=== PATIENT | male | born 1980 | race Caucasian/White ===

== ENCOUNTER 2018-04-07 15:25 | Emergency (ER) | payer SELFPAY ==
[2018-04-07] MEDS ORDERED: Sulfamethoxazole/Trimethoprim 800-160 MG Tab ONE (15:35)
--- NOTE | 2018-04-07 19:16 | ER ---
Date of Service: 04/07/2018 HISTORY OF PRESENT ILLNESS: The patient is a 37-year-old male who presents to the ER. He thinks he was bit during the nighttime by an insect. He notes a small sore on the right base of the neck, which has gotten worse since Sunday. It is tender, red, and swollen. The patient has a small, raised, slightly hardened, indurated area at the center. It does not appear to be particularly fluctuant. ALLERGIES: THE PATIENT HAS NO ALLERGIES. MEDICATIONS: He is on no medications. PHYSICAL EXAMINATION: VITAL SIGNS: His temperature is 98.3, heart rate is 84, O2 saturation it is 99% , blood pressure is 155/108. HEENT: Unremarkable. NECK: Supple. No nodes. At the base of the neck posteriorly, the patient has a small indurated area surrounded by some erythema and swelling. It does not appear to be fluctuant. It is tender and warm to the touch. LUNGS: Clear. HEART: Regular sinus rhythm. ASSESSMENT: Skin infection Most likely a small staphylococcus infection. I did discuss with the patient that it really does not feel fluctuant enough to incise at this time. We will go ahead and put him on some Bactrim DS 1 p.o. b.i.d. I did discuss with him that if it gets worse or becomes more fluctuant or comes to head, he would need to come in and get it drained. He lives in [place]. He will be going back to [place] tomorrow. He has gotten 10 days ' worth of Bactrim. Again, if it is not getting better fairly quickly, he needs to come back, and we would consider incision and draining. ZION/BHAVNA /[id number] [place]
== END 2018-04-07 15:47 | disposition home or self-care (01) ==
LOC: LB.ED 15:25
DX: L08.9 Local infection of the skin and subcutaneous tissue, unspecified (principal)
CPT/HCPCS: 99281; A9270